=== PATIENT | female | born 1990 | race Two or more races ===

== ENCOUNTER 2018-03-24 21:52 | Emergency (ER) | payer MEDICAID ==
[~2018-03-24] VITALS: Ht 165.1 cm; Wt 94.3 kg
[2018-03-24 23:20] LABS: Urine Bacteria FEW /hpf (None Seen); Urine Blood Negative /uL (Negative); Urine Specific Gravity 1.013 (1.001-1.035); Urine WBC 1 /hpf (0 - 5)
[2018-03-24 23:40] LABS: Basophils # (auto) 0 uL; Basophils % (auto) 0.2 % (0.0-2.0); Eosinophils # (auto) 0.1 uL; Eosinophils % (auto) 0.5 % (0.0-7.0); Hematocrit 36.6 % (36.0-46.0); Hemoglobin 12.5 g/dL (12.2-16.2); Lymphocytes # (auto) 2.6 uL; Mean Corpuscular Hemoglobin 29.9 pg (28.0-32.0); Mean Corpuscular Hgb Conc. 34.3 g/dL (32.0-36.0); Mean Corpuscular Volume 87.1 fL (80.0-100.0); Monocytes # (auto) 0.7 uL; Monocytes % (auto) 5.4 % (0.0-12.0); Neutrophils # (auto) 8.7 uL; Neutrophils % (auto) 71.9 % (37.0-80.0); Platelet Count (auto) 252 10^3/uL (140-450); Red Cell Distribution Width 13.5 % (11.8-14.3)
[2018-03-24 23:57] LABS: Albumin 3.1 g/dL (3.4-5.0); Calcium 8.2 mg/dL (8.5-10.1)
[2018-03-24 23:59] LABS: BUN/Creatinine Ratio 14.8
[2018-03-25 00:02] LABS: Bilirubin, Total 0.3 mg/dL (0.2-1.0); Total Protein 7.1 g/dL (6.4-8.2)
[2018-03-25 03:28] VITALS: BP 132/75
== END 2018-03-25 04:34 | disposition home or self-care (01) ==
LOC: ER 21:52
DX: O26.892 Other specified pregnancy related conditions, second trimester (principal); R30.0 Dysuria; R10.31 Right lower quadrant pain; M79.18 Myalgia, other site; Z3A.15 15 weeks gestation of pregnancy
CPT/HCPCS: 36415; 76805; 80053; 81001; 85025

== ENCOUNTER 2018-05-15 17:05 | Observation (INO) | payer MEDICAID ==
[2018-05-15] MEDS ORDERED: PREN-96 PO (17:39)
[2018-05-15] MEDS ORDERED: BETAMETHASONE ACET (6MG/ML) 5ML VIAL IM SCH (22:00)
[2018-05-16] MEDS ORDERED: NIF10C GT (19:15)
[2018-05-16] MEDS ORDERED: [UNRECOGNIZED DRUG - CODE] TD (19:15)
== END 2018-05-15 18:25 | disposition home or self-care (01) | DRG 566 ==
LOC: LDRP 17:05
PROVIDERS: ADMIT Specialist; ATTEND Specialist
DX: O26.872 Cervical shortening, second trimester (principal); Z3A.22 22 weeks gestation of pregnancy
CPT/HCPCS: 59025; 81002; 96372; G0378; J0702

== ENCOUNTER 2018-05-16 18:50 | Observation (INO) | payer MEDICAID ==
[~2018-05-16] VITALS: Ht 165.1 cm; Wt 94.8 kg
[~2018-05-16 18:50] MED LIST: PREN-96 PO
[2018-05-16] MEDS ORDERED: NIF10C GT (19:15)
[2018-05-16] MEDS ORDERED: [UNRECOGNIZED DRUG - CODE] TD (19:15)
[2018-05-16] MEDS ORDERED: BETAMETHASONE ACET (6MG/ML) 5ML VIAL IM SCH (19:45)
== END 2018-05-16 20:30 | disposition home or self-care (01) | DRG 566 ==
LOC: LDRP 18:50
PROVIDERS: ADMIT Obstetrics & Gynecology; ATTEND Obstetrics & Gynecology
DX: O26.872 Cervical shortening, second trimester (principal); Z3A.22 22 weeks gestation of pregnancy
CPT/HCPCS: 59025; 81002; 96372; G0378

== ENCOUNTER 2018-07-27 11:27 | Observation (INO) | payer MEDICAID ==
[~2018-07-27 11:27] MED LIST changes: +NIF10C GT; +[UNRECOGNIZED DRUG - CODE] TD
== END 2018-07-27 13:10 | disposition home or self-care (01) | DRG 566 ==
LOC: LDRP 11:27
PROVIDERS: ADMIT Specialist; ATTEND Specialist
DX: O24.419 Gestational diabetes mellitus in pregnancy, unspecified control (principal); Z3A.33 33 weeks gestation of pregnancy
CPT/HCPCS: 59025; 76818; 81002; 82962; G0378

== ENCOUNTER 2018-07-31 16:15 | Observation (INO) | payer MEDICAID ==
[2018-07-31] MEDS ORDERED: GLYB1.257 PO (17:54)
== END 2018-07-31 17:50 | disposition home or self-care (01) | DRG 566 ==
LOC: LDRP 16:15
PROVIDERS: ADMIT Obstetrics & Gynecology; ATTEND Obstetrics & Gynecology
DX: O24.419 Gestational diabetes mellitus in pregnancy, unspecified control (principal); O60.03 Preterm labor without delivery, third trimester; Z3A.33 33 weeks gestation of pregnancy
CPT/HCPCS: 59025; 81002; 82962; G0378

== ENCOUNTER 2018-08-03 15:30 | Observation (INO) | payer MEDICAID ==
[~2018-08-03 15:30] MED LIST changes: +GLYB1.257 PO
== END 2018-08-03 16:40 | disposition home or self-care (01) | DRG 566 ==
LOC: LDRP 15:30
PROVIDERS: ADMIT Specialist; ATTEND Specialist
DX: O24.419 Gestational diabetes mellitus in pregnancy, unspecified control (principal); Z3A.34 34 weeks gestation of pregnancy
CPT/HCPCS: 59025; 76818; 81002; 82962; G0378

== ENCOUNTER 2018-08-07 19:38 | Observation (INO) | payer MEDICAID | END 2018-08-07 21:07 | disposition home or self-care (01) | DRG 566 | LOC: LDRP 19:38 | PROVIDERS: ADMIT Specialist; ATTEND Specialist | DX: O24.419 Gestational diabetes mellitus in pregnancy, unspecified control (principal); Z3A.34 34 weeks gestation of pregnancy | CPT/HCPCS: 59025; 76818; 81002; 82948; 82962; G0378 ==

== ENCOUNTER 2018-08-10 10:34 | Observation (INO) | payer MEDICAID ==
[2018-08-10] MEDS: TERBUTALINE SULFATE 1 MG/ML 1ML VIAL SC SCH (12:08)
== END 2018-08-10 12:40 | disposition home or self-care (01) | DRG 566 ==
LOC: LDRP 10:34
PROVIDERS: ADMIT Obstetrics & Gynecology; ATTEND Obstetrics & Gynecology
DX: O24.419 Gestational diabetes mellitus in pregnancy, unspecified control (principal); O60.03 Preterm labor without delivery, third trimester; O62.9 Abnormality of forces of labor, unspecified; Z3A.35 35 weeks gestation of pregnancy
CPT/HCPCS: 59025; 76818; 81002; 82948; 82962; 96372; G0378

== ENCOUNTER 2018-08-14 11:30 | Observation (INO) | payer MEDICAID | END 2018-08-14 12:33 | disposition home or self-care (01) | DRG 566 | LOC: LDRP 11:30 | PROVIDERS: ADMIT Obstetrics & Gynecology; ATTEND Obstetrics & Gynecology | DX: O24.419 Gestational diabetes mellitus in pregnancy, unspecified control (principal); O60.03 Preterm labor without delivery, third trimester; Z3A.35 35 weeks gestation of pregnancy | CPT/HCPCS: 59025; 76818; 81002; 82962; G0378 ==

== ENCOUNTER 2018-08-17 11:32 | Observation (INO) | payer MEDICAID ==
[~2018-08-17 11:32] MED LIST changes: -[UNRECOGNIZED DRUG - CODE] TD
== END 2018-08-17 13:30 | disposition home or self-care (01) | DRG 566 ==
LOC: LDRP 11:32
PROVIDERS: ADMIT Obstetrics & Gynecology; ATTEND Obstetrics & Gynecology
DX: O24.419 Gestational diabetes mellitus in pregnancy, unspecified control (principal); O60.03 Preterm labor without delivery, third trimester; Z3A.36 36 weeks gestation of pregnancy
CPT/HCPCS: 59025; 76818; 81002; 82948; 82962; G0378

== ENCOUNTER 2018-08-21 15:41 | Observation (INO) | payer MEDICAID | END 2018-08-21 17:20 | disposition home or self-care (01) | DRG 566 | LOC: LDRP 15:41 | PROVIDERS: ADMIT Obstetrics & Gynecology; ATTEND Obstetrics & Gynecology | DX: O26.893 Other specified pregnancy related conditions, third trimester (principal); Z3A.36 36 weeks gestation of pregnancy | CPT/HCPCS: 59025; 76818; 81002; 82948; 82962; G0378 ==

== ENCOUNTER 2018-08-28 15:48 | Observation (INO) | payer MEDICAID | END 2018-08-28 17:25 | disposition home or self-care (01) | DRG 566 | LOC: LDRP 15:48 | PROVIDERS: ADMIT Obstetrics & Gynecology; ATTEND Obstetrics & Gynecology | DX: O24.419 Gestational diabetes mellitus in pregnancy, unspecified control (principal); Z3A.37 37 weeks gestation of pregnancy | CPT/HCPCS: 59025; 76818; 81002; 82948; 82962; G0378 ==

== ENCOUNTER 2018-09-01 11:30 | Observation (INO) | payer MEDICAID ==
[~2018-09-01 11:30] MED LIST changes: -NIF10C GT
== END 2018-09-01 12:44 | disposition home or self-care (01) | DRG 566 ==
LOC: LDRP 11:30
PROVIDERS: ADMIT Obstetrics & Gynecology; ATTEND Obstetrics & Gynecology
DX: O24.419 Gestational diabetes mellitus in pregnancy, unspecified control (principal); Z3A.38 38 weeks gestation of pregnancy
CPT/HCPCS: 59025; 76818; 81002; 82948; 82962; G0378

== ENCOUNTER 2018-09-05 15:15 | Observation (INO) | payer MEDICAID | END 2018-09-05 17:15 | disposition home or self-care (01) | DRG 566 | LOC: LDRP 15:15 | PROVIDERS: ADMIT Obstetrics & Gynecology; ATTEND Obstetrics & Gynecology | DX: O24.419 Gestational diabetes mellitus in pregnancy, unspecified control (principal); Z3A.38 38 weeks gestation of pregnancy | CPT/HCPCS: 59025; 76818; 81002; 82948; 82962; G0378 ==

== ENCOUNTER 2018-09-07 10:55 | Inpatient (IN) | payer MEDICAID ==
[~2018-09-07] VITALS: Ht 165.1 cm; Wt 95.3 kg
[~2018-09-07 10:55] MED LIST changes: -GLYB1.257 PO
[2018-09-07] MEDS ORDERED: LIDOCAINE 2%HCL (LOCAL ANESTH.) INJ 20ML MDV ONE (11:11)
[2018-09-07] MEDS ORDERED: METHYLERGONOVINE MALEATE 0.2 MG/ML AMP IM ONE (11:14)
[2018-09-07] MEDS ORDERED: LACT. RINGERS/OXYTOCIN 20UNITS 1,000 ML IV SCH (11:59)
[2018-09-07] MEDS ORDERED: LIDOCAINE 2%HCL (LOCAL ANESTH.) INJ 20ML MDV ID ONE (12:00)
[2018-09-07] MEDS ORDERED: WITCH HAZEL-GLYCERIN PAD TOP PRN (12:00)
[2018-09-07] MEDS ORDERED: DERMOPLAST 60ML BOTTLE TOP PRN (12:00)
[2018-09-07] MEDS ORDERED: METHYLERGONOVINE MALEATE 0.2 MG/ML AMP IM PRN (12:00)
[2018-09-07] MEDS ORDERED: PHISODERM TOP SOLN 240ML BTL TOP PRN (12:00)
--- NOTE | 2018-09-07 12:20 | NUR ---
Ambulation: Patient OOB with standby assistance by RN. Patient ambulated to bathroom with steady gait. Patient able to void 150ML urine without difficulty. [facility] teaching provided with returned demonstration by patient. Clean gown provided and bed linen changed. Patient ambulated back to bed with steady gait and no distress noted.
[2018-09-07 12:28] LABS: Basophils # (auto) 0 uL; Basophils % (auto) 0.1 % (0.0-2.0); Eosinophils # (auto) 0 uL; Eosinophils % (auto) 0.1 % (0.0-7.0); Hematocrit 39.5 % (36.0-46.0); Hemoglobin 13.1 g/dL (12.2-16.2); Lymphocytes # (auto) 1.3 uL; Lymphocytes % (auto) 11.5 % (10.0-50.0); Mean Corpuscular Hemoglobin 29.6 pg (28.0-32.0); Mean Corpuscular Hgb Conc. 33.2 g/dL (32.0-36.0); Mean Corpuscular Volume 89.2 fL (80.0-100.0); Monocytes # (auto) 0.4 uL; Monocytes % (auto) 3.3 % (0.0-12.0); Neutrophils # (auto) 9.5 uL; Platelet Count (auto) 200 10^3/uL (140-450); Red Blood Cells 4.43 10^6/uL (4.0-5.20); Red Cell Distribution Width 14.7 % (11.8-14.3); White Blood Cell 11.1 10^3/uL (4.4-10.8)
[2018-09-07 12:43] LABS: INR < 0.93 (0.9-1.15); Partial Thromboplastin Time 25.2 sec (23.64-32.05)
[2018-09-07 12:44] LABS: Albumin 2.7 g/dL (3.4-5.0); Anion Gap 10 (5-15); Blood Urea Nitrogen 12 mg/dL (7-18); Calcium 8.1 mg/dL (8.5-10.1); Carbon Dioxide 21 mmol/L (21-32); Chloride 108 mmol/L (98-107); Glucose 125 mg/dL (74-106); Potassium 4.5 mmol/L (3.5-5.1); Sodium 139 mmol/L (136-145)
[2018-09-07 12:45] LABS: Alanine Aminotransferase 27 U/L (13-56); Aspartate Aminotransferase 17 U/L (15-37); GFR African American 117 mL/min; GFR Non-African American 97 mL/min
--- NOTE | 2018-09-07 12:45 | NUR ---
PT TRANSFERRED TO ROOM 8B. PT AMBULATED WITH STEADY GAIT PUSHING IN OPEN CRIB TO ROOM 8B ACCOMPANIED BY Shani SINGH STUDENT NURSE, FOB AND DAUGHTER WITH ALL PERSONAL BELONGINGS. NO DISTRESS NOTED. WILL CONTINUE TO MONITOR.
[2018-09-07 12:48] LABS: Alkaline Phosphatase 272 U/L (45-117); Bilirubin, Total 0.2 mg/dL (0.2-1.0); Total Protein 6.8 g/dL (6.4-8.2)
[2018-09-07] MEDS ORDERED: LACT. RINGERS/OXYTOCIN 20UNITS 500 ML IV ONE (13:28)
[2018-09-07] MEDS ORDERED: IBUPROFEN 600 MG TAB PO PRN (13:30)
[2018-09-07 13:47] LABS: Urine Bacteria NONE SEEN /hpf (None Seen); Urine Blood 2+ /uL (Negative); Urine Mucus FEW (None Seen); Urine Specific Gravity 1.038 (1.001-1.035); Urine WBC 9 /hpf (0 - 5)
[2018-09-07 15:20] VITALS: BP 128/83
--- NOTE | 2018-09-07 18:18 | NUR ---
REPORT GIVEN TO Shani TORRES ON STABLE PATIENT, RELINQUISHED CARE. NO DISTRESS NOTED.
[2018-09-07 19:20] VITALS: BP 127/87
[2018-09-07 23:09] VITALS: BP 122/82
[2018-09-08 03:00] VITALS: BP 133/92
[2018-09-08 05:08] LABS: RPR Non Reactive (Non Reactive)
[2018-09-08 06:50] VITALS: BP 122/85
[2018-09-08 11:15] VITALS: BP 130/84
[2018-09-08 15:00] VITALS: BP 130/82
--- NOTE | 2018-09-08 15:00 | NUR ---
Discharge: Discharge instructions given as ordered. Pt encouraged to follow up with [facility] as instructed. All questions and concerns addressed. Patient verbalized understanding. Medication reconciliation completed and copy given to patient. Patient encouraged to prepare to depart unit.
--- NOTE | 2018-09-08 15:25 | NUR ---
Discharge: Patient taken to vehicle ambulatory via steady gait with all personal belongings, accompanied by staff and family member. No distress noted at time of departure, no adverse changes in status since initial assessment.
== END 2018-09-08 15:25 | disposition home or self-care (01) | DRG 560 ==
LOC: LDRP 10:55 → OBSVTOIN 10:55 → LDRP 12:04
PROVIDERS: ADMIT Obstetrics & Gynecology; ATTEND Obstetrics & Gynecology
PROC: 10E0XZZ Delivery of Products of Conception, External Approach (ICD-10-PCS; principal; 2018-09-07)
PROC: 0HQ9XZZ Repair Perineum Skin, External Approach (ICD-10-PCS; 2018-09-07)
DX: O24.419 Gestational diabetes mellitus in pregnancy, unspecified control (principal); O99.345 Other mental disorders complicating the puerperium; F53.0 Postpartum depression; Z37.0 Single live birth; O71.82 Other specified trauma to perineum and vulva
CPT/HCPCS: 36415; 59025; 80053; 81001; 81002; 84112; 85025; 85610; 85730; 86592; 86850; 86870; 86900; 86901; 96372; G0378

== ENCOUNTER 2020-10-27 08:12 | Inpatient (IN) | payer MEDICAID ==
[2020-10-27] VITALS (16 sets, daily range): BP systolic 124–144; BP diastolic 65–89
[2020-10-27] MEDS ORDERED: WITCH HAZEL-GLYCERIN PAD TOP PRN (08:30)
[2020-10-27] MEDS ORDERED: PROMETHAZINE HCL 25 MG/ML 1ML IV PRN (08:30)
[2020-10-27] MEDS ORDERED: LIDOCAINE 2%HCL (LOCAL ANESTH.) INJ 20ML MDV IJ PRN (08:30)
[2020-10-27] MEDS ORDERED: PHISODERM TOP SOLN 240ML BTL TOP PRN (08:30)
[2020-10-27] MEDS ORDERED: LACT. RINGERS/OXYTOCIN 20UNITS 500 ML IV ONE ×2 (08:30→09:00)
[2020-10-27] MEDS ORDERED: LACTATED RINGER'S 1,000 ML IV SCH ×2 (08:30→13:00)
[2020-10-27] MEDS ORDERED: DERMOPLAST 60ML BOTTLE TOP PRN (08:30)
[2020-10-27] MEDS ORDERED: BUTORPHANOL TARTRATE 2 MG/1 ML VIAL IV PRN ×2 (08:30)
[2020-10-27] MEDS ORDERED: PENICILLIN G POT 5MIL/D5 50ML 50 ML IV ONE (08:30)
[2020-10-27] MEDS ORDERED: miSOPROStol 100 mcg TAB ONE (08:42)
[2020-10-27 08:59] LABS: Urine Bacteria FEW /hpf (None Seen); Urine Blood 3+ /uL (Negative); Urine Mucus FEW (None Seen); Urine WBC 24 /hpf (0 - 5)
[2020-10-27 09:13] LABS: Alcohol, Urine < 3.0 mg/dL (0-10); Amphetamine Screen, Urine NEGATIVE (NEGATIVE); Barbiturate Scree,Urine NEGATIVE (NEGATIVE); Benzodiazephine Screen, Urine NEGATIVE (NEGATIVE); Cannabinoid Screen, Urine NEGATIVE (NEGATIVE); Cocaine Screen, Urine NEGATIVE (NEGATIVE); Opiate Scree,Urine NEGATIVE (NEGATIVE); Phencyclidine Screen, Urine NEGATIVE (NEGATIVE)
[2020-10-27] MEDS ORDERED: miSOPROStol 100 mcg TAB PR ONE (09:15)
[2020-10-27] MEDS ORDERED: miSOPROStol 100 mcg TAB SL ONE (09:15)
[2020-10-27 09:21] LABS: Basophils # (auto) 0.1 10 ^3/uL (0-0.2); Basophils % (auto) 1.1 % (0.0-2.0); Eosinophils # (auto) 0 10 ^3/uL (0-0.8); Eosinophils % (auto) 0.3 % (0.0-7.0); Hematocrit 39.6 % (36.0-46.0); Hemoglobin 13.6 g/dL (12.2-16.2); Lymphocytes % (auto) 31.9 % (10.0-50.0); Mean Corpuscular Hemoglobin 29.7 pg (28.0-32.0); Mean Corpuscular Hgb Conc. 34.3 g/dL (32.0-36.0); Mean Corpuscular Volume 86.5 fL (80.0-100.0); Monocytes # (auto) 0.3 10 ^3/uL (0-1.3); Monocytes % (auto) 4.9 % (0.0-12.0); Neutrophils # (auto) 3.9 10 ^3/uL (1.6-8.6); Neutrophils % (auto) 61.8 % (37.0-80.0); Nucleated Red Blood Cells % 0.1 %; Red Blood Cells 4.58 10^6/uL (4.0-5.20); Red Cell Distribution Width 14.1 % (11.8-14.3); White Blood Cell 6.4 10^3/uL (4.4-10.8)
[2020-10-27 09:39] LABS: Calcium 8.1 mg/dL (8.5-10.1); Potassium 3.9 mmol/L (3.5-5.1)
[2020-10-27 09:48] LABS: Albumin 2.2 g/dL (3.4-5.0); BUN/Creatinine Ratio 10.5; Bilirubin, Total 0.1 mg/dL (0.2-1.0)
[2020-10-27 10:00] LABS: INR 0.9 (0.9-1.15); Partial Thromboplastin Time 27.7 sec (23.6-33.0)
[2020-10-27 11:17] LABS: Protein, Urine 985.4 mg/dL (0.0-11.9)
[2020-10-27] MEDS ORDERED: ACETAMINOPHEN 325 MG TAB PO PRN (11:30)
[2020-10-27] MEDS ORDERED: MAGNESIUM SULFATE 100 ML IV ONE (12:15)
[2020-10-27] MEDS ORDERED: PENICILLIN G POTASSIUM 2,500,000 UNITS in D5W 5% 50 ML IV SCH (12:30)
[2020-10-27] MEDS ORDERED: MAGNESIUM SULFATE 40MG/ML 1,000 ML IV SCH (13:00)
[2020-10-27] MEDS ORDERED: LORazepam 2MG/ML-1ML VIAL IV ONE (13:00)
[2020-10-27] MEDS: ceFAZolin 1GM/50ML 50 ML IV SCH ×2 (15:04→22:30)
[2020-10-27] MEDS: IBUPROFEN 600 MG TAB PO PRN (16:24)
[2020-10-28] VITALS (12 sets, daily range): BP systolic 120–136; BP diastolic 78–96
[2020-10-28] MEDS: IBUPROFEN 600 MG TAB PO PRN (00:05)
[2020-10-28] MEDS: ceFAZolin 1GM/50ML 50 ML IV SCH (06:05)
[2020-10-28 06:06] LABS: RPR Non Reactive (Non Reactive)
[2020-10-29 03:00] VITALS: BP 130/81
[2020-10-29 07:00] VITALS: BP 125/65
[2020-10-29 12:44] VITALS: BP 141/86
== END 2020-10-29 12:44 | disposition home or self-care (01) | DRG 560 ==
LOC: LDRP 08:12 → OBSVTOIN 08:12
PROVIDERS: ADMIT Obstetrics & Gynecology; ATTEND Obstetrics & Gynecology
PROC: 10E0XZZ Delivery of Products of Conception, External Approach (ICD-10-PCS; principal; 2020-10-27)
PROC: 0UQMXZZ Repair Vulva, External Approach (ICD-10-PCS; 2020-10-27)
DX: O14.94 Unspecified pre-eclampsia, complicating childbirth (principal); Z37.0 Single live birth; O60.14X0 Preterm labor third trimester with preterm delivery third trimester, not applicable or unspecified; O71.82 Other specified trauma to perineum and vulva; Z3A.36 36 weeks gestation of pregnancy; Z20.822 Contact with and (suspected) exposure to COVID-19
CPT/HCPCS: 36415; 59025; 59409; 80053; 80307; 81001; 81002; 82570; 83735; 84156; 84550; 85025; 85610; 85730; 86592; 86762; 86850; 86870; 86900; 86901; 87426; 94760; 94762; 96360; 96365; 96366; G0378; J0690; J2590; J7060